=== PATIENT | female | born 1985 | race Caucasian/White ===

== ENCOUNTER 2017-04-04 09:30 | Emergency (ER) | payer OTHER ==
[2017-04-04 09:37] VITALS: BP 118/76; PULSE 83; TEMP 98.8; BMI 19.3
[2017-04-04] MEDS ORDERED: RALTEGRAVIR POTASSIUM 400 MG TAB PO ONE (09:56)
[2017-04-04] MEDS ORDERED: EMTRICITABINE 200MG/TENOFOVIR 300MG PO ONE (09:56)
[2017-04-04] MEDS ORDERED: HIV POST EXPOSURE PROPHYLAXIS KIT NR ONE (10:03)
--- NOTE | 2017-04-04 10:13 | PDOC ---
Post Exposure HPI - General Chief Complaint: Blood/Body Fluid Exposure SJR Stated Complaint: [employer]LE[employer], non-hospital employee Time Seen by Provider: 04/04/17 09:56 History Source: Patient Exam Limitations: No Limitations - History of Present Illness Initial Comments: 04/04/17 10:07 This is a 32-year-old woman without a past medical history who presents to the emergency department status post exposure to body fluids. 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 She was administering subcutaneous DDAVP to a patient's when she was bumped and subcutaneous needle left ear hand and graced her in the left upper arm. Patient states she was using a 30-gauge subcutaneous needle to deliver the medication. There is a small break in the skin from contact with the needle. Patient states she had wash the area with soap and water prior to coming to the emergency room. Patient is unaware of the child's HIV status. She reports the source patient has been vaccinated for hepatitis A and hepatitis B. She states the patient has been a resident in the [facility] for many years and has never exhibited any signs and symptoms of acute HIV infection and has not had any known exposures to HIV infected individuals. She denies any fevers, shortness of breath, chest pain, nausea, vomiting. PMH: Denies PSH: Denies NKDA Immunizations: Up-to-date Occupation: Registered nurse [employer] Dillon Timing: just prior to arrival Past History - Past Medical History Allergies/Adverse Reactions: Allergies Allergy/AdvReac Type Severity Reaction Status Date / Time No Known Allergies Allergy Verified 04/04/17 09:37 Home Medications: Ambulatory Orders NK [No Known Home Medication] 04/04/17 COPD: No Other medical history: denies - Surgical History Appendectomy: Yes - Suicide/Smoking/Psychosocial Hx Smoking History: Current every day smoker Number of Cigarettes Smoked Daily: 20 Information on smoking cessation initiated: Yes 'Breaking Loose' booklet given: 04/04/17 Hx Alcohol Use: No Drug/Substance Use Hx: No Substance Use Type: None Review of Systems - Review of Systems Able to Perform ROS?: Yes Is the patient limited German proficient: No Constitutional: No: Symptoms Reported HEENTM: No: Symptoms Reported Respiratory: No: Symptoms reported Cardiac (ROS): No: Symptoms Reported ABD/GI: No: Symptoms Reported : No: Symptoms Reported Musculoskeletal: No: Symptoms Reported Integumentary: Yes: See HPI Neurological: No: Symptoms reported *Physical Exam - Vital Signs Last Vital Signs Temp Pulse Resp BP Pulse Ox 98.8 F 83 18 118/76 100 04/04/17 09:35 04/04/17 09:35 04/04/17 09:35 04/04/17 09:35 04/04/17 09:35 - Physical Exam General Appearance: Yes: Appropriately Dressed. No: Apparent Distress HEENT: positive: KATHIA, Normal ENT Inspection Neck: positive: Trachea midline, Supple. negative: Tender Respiratory/Chest: positive: Lungs Clear, Normal Breath Sounds. negative: Chest Tender, Respiratory Distress, Accessory Muscle Use Cardiovascular: positive: Regular Rhythm, Regular Rate, S1, S2. negative: Murmur Gastrointestinal/Abdominal: positive: Normal Bowel Sounds, Soft. negative: Tender Musculoskeletal: positive: Normal Inspection. negative: CVA Tenderness Integumentary: positive: Other (Pinpoint skin break noted on the lateral aspect of the left upper arm. 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 Pinpoint skin break noted to the lateral aspect of the left upper arm. Bleeding is controlled at this time. There is no erythema, induration, discharge from the area. Diagnosis- percutaneous occupational exposure to body fluids I will obtain all post exposure labs including CBC, CMP, hepatitis B Song, hepatitis C panel, LDH, uric acid, HIV. To the patient that she is at low risk for exposure and subsequent seroconversion to HIV. The risks and benefits of taking post exposure prophylaxis have been explained to the patient and patient chooses to take post exposure prophylactic medications. I will follow-up on laboratory testing with patient was results are returned. 04/04/17 11:44 No abnormalities noted on laboratory testing. Patient is currently HIV negative. I will discharge patient with follow-up with her occupational health services. *DC/Admit/Observation/Transfer Diagnosis at time of Disposition: Exposure to blood or body fluid - Discharge Dispostion Disposition: HOME Admit: No - Referrals Referrals: Wilma,Rafy F [Primary Care Provider] - - Patient Instructions Printed Discharge Instructions: How to Handle Body Fluid Exposure -- Healthcare Worker Additional Instructions: You should follow-up with your occupational health team. Take post exposure prophylaxis as prescribed. Return to emergency department for fevers, chills, headaches, body aches, nausea , vomiting or any other concerns. Thank you very much for choosing us to provide your emergent healthcare needs. - Post Discharge Activity Forms/Work/School Notes: Back to Work
[2017-04-04] MEDS ORDERED: HIV POST EXPOSURE PROPHYLAXIS KIT PO ONE (10:14)
[2017-04-04 10:28] LABS: BASOPHIL 0.8 % (0-2.0); EOSINOPHIL 0.8 % (0-4.5); MCH 34.1 pg (25.7-33.7); MCHC 34.1 g/dl (32.0-36.0); MEAN CELL VOLUME 100.1 fl (80-96); MEAN PLT VOLUME 10.3 fl (7.5-11.1); PLATELET COUNT 243 K/MM3 (134-434); RDW 12.8 % (11.6-15.6); WHITE BLOOD COUNT 5.7 K/mm3 (4.0-10.0)
[2017-04-04 10:44] LABS: ALBUMIN 4.6 g/dl (3.4-5.0); ANION GAP 7 (8-16); CALCIUM 9.2 mg/dL (8.5-10.1); CHOLESTEROL 155 mg/dL (50-200); CO2 27 mmol/L (21-32); CREATININE 0.7 mg/dL (0.55-1.02); GLUCOSE,RANDOM 106 mg/dL (74-106); LDH 156 U/L (84-246); PHOSPHOROUS 2.9 mg/dL (2.5-4.9); SGOT/AST 6 U/L (15-37); SGPT/ALT 15 U/L (12-78); TOT PROT 7.6 g/dl (6.4-8.2)
[2017-04-04 10:45] LABS: ALK PHOS 54 U/L (45-117); BILIRUBIN,TOTAL 0.5 mg/dL (0.2-1.0)
[2017-04-04 10:55] LABS: HIV 1 & 2 AB NEGATIVE; HIV 1 AGp24 NEGATIVE
== END 2017-04-04 11:55 | disposition home or self-care (01) ==
LOC: JERFT 09:30
DX: Z77.21 Contact with and (suspected) exposure to potentially hazardous body fluids (principal); S41.132A Puncture wound without foreign body of left upper arm, initial encounter; W46.1XXA Contact with contaminated hypodermic needle, initial encounter; Y93.F9 Activity, other caregiving; Y92.230 Patient room in hospital as the place of occurrence of the external cause; Y99.0 Civilian activity done for income or pay
CPT/HCPCS: 36415; 80053; 82465; 82977; 83615; 84100; 84478; 84550; 84702; 85025; 86704; 86803; 87340; 87389; 99282-25